=== PATIENT | female | born 1995 | race Caucasian/White ===

== ENCOUNTER 2016-12-31 10:32 | Day surgery (SDC) | payer BC ==
[~2016-12-31] VITALS: Ht 170.2 cm; Wt 113.7 kg
[2016-12-31] MEDS ORDERED: PROPOFOL 80 ML ONE (10:57)
[2016-12-31] MEDS ORDERED: LIDOCAINE 2% (SDV) 5 ML INJ ONE (10:57)
[2016-12-31 11:03] VITALS: Ht 170.2 cm; Wt 113.7 kg
[2016-12-31] MEDS ORDERED: BIRTH CONTROL (11:06)
[2016-12-31 11:19] VITALS: BP 106/57; PULSE 83; RESP 18
--- NOTE | 2016-12-31 11:53 | OPPN ---
Date/Time of Note Date/Time of Note DATE: 12/31/16 TIME: 11:52 Operative Report Preoperative Diagnosis Abdominal pain Chronic diarrhea Postoperative Diagnosis Gastritis Internal hemorrhoids Operation/Procedure Performed Esophagogastroduodenoscopy and biopsy Colonoscopy and biopsy Surgeon see signature line transportation assistant None Anesthesia: MAC Estimated blood loss: none Transfusion Required none Specimen Gastric mucosal biopsy Small bowel biopsy Random colon biopsy Grafts/Implants none Complications none JESSICA OLIVARES MD Dec 31, 2016 11:53
--- NOTE | 2016-12-31 11:53 | OPPN ---
Date/Time of Note Date/Time of Note DATE: 12/31/16 TIME: 11:52 Operative Report Preoperative Diagnosis Abdominal pain Chronic diarrhea Postoperative Diagnosis Gastritis Internal hemorrhoids Operation/Procedure Performed Esophagogastroduodenoscopy and biopsy Colonoscopy and biopsy Surgeon see signature line captain assistant None Anesthesia: MAC Estimated blood loss: none Transfusion Required none Specimen Gastric mucosal biopsy Small bowel biopsy Random colon biopsy Grafts/Implants none Complications none JESSICA OLIVARES MD Dec 31, 2016 11:53
--- NOTE | 2016-12-31 11:53 | OPPN ---
Date/Time of Note Date/Time of Note DATE: 12/31/16 TIME: 11:52 Operative Report Preoperative Diagnosis Abdominal pain Chronic diarrhea Postoperative Diagnosis Gastritis Internal hemorrhoids Operation/Procedure Performed Esophagogastroduodenoscopy and biopsy Colonoscopy and biopsy Surgeon see signature line financial legal assistant None Anesthesia: MAC Estimated blood loss: none Transfusion Required none Specimen Gastric mucosal biopsy Small bowel biopsy Random colon biopsy Grafts/Implants none Complications none JESSICA OLIVARES MD Dec 31, 2016 11:53
--- NOTE | 2017-01-01 05:29 | GILP ---
DATE OF PROCEDURE: NAME OF PROCEDURES: 1. Esophagogastroduodenoscopy and biopsy. 2. Colonoscopy and biopsy. SURGEON: Bernadette Fulton MD PREOPERATIVE DIAGNOSES: 1. Abdominal pain. 2. Chronic diarrhea. POSTOPERATIVE DIAGNOSES 1. Gastritis with erosions. 2. Gastric mucosal biopsies were taken for Helicobacter pylori test. 3. Small bowel biopsies were taken to rule out celiac disease. 4. Colonoscopy all the way to the cecum and into the terminal ileum. 5. Normal terminal ileum. 6. Normal colonic mucosa. 7. Random biopsies were taken to rule out microscopic colitis. 8. Internal hemorrhoids. INDICATION FOR THE PROCEDURE: Ms. Madeline Kingsley is a 21-year-old female patient who had upper abdo yony pain, not responding to therapy. She also had chronic diarrhea. The patient was scheduled fo r endoscopy and colonoscopy for further evaluation. The procedures and possible complications were well explained to the patient. The patient understoo d and consented to the procedure. DESCRIPTION OF PROCEDURE: Under the influence of anesthesia, the gastroscope was carefully introduc ed into the esophagus and under direct vision, it was advanced to the stomach and through the pyloru s into the duodenal bulb and descending duodenum. FINDINGS: ESOPHAGUS: The mucosa was normal. STOMACH: The patient had gastritis with erosions. Gastric mucosal biopsies were taken for H. pylor i test. DUODENUM: Normal. Small bowel biopsies were taken to rule out celiac disease. The colonoscope was carefully introduced in the rectum and under direct vision, it was advanced all the way to the cecum and through the ileocecal valve into the terminal ileum. FINDINGS: The terminal ileum was normal. The colonic mucosa was normal. Random biopsies were take n to rule out microscopic colitis. The patient was noted to have internal hemorrhoids. She tolerated the procedures very well and there was no complication from the procedures. At the en d of the procedures, she was awake with stable vital signs and she was discharged home to the care o f her family. IMPRESSION: Please see postoperative diagnosis. PLAN: 1. Nexium 24 hours p.o. q.a.m. 2. Bentyl 10 mg p.o. t.i.d. p.r.n. for abdominal pain and diarrhea. 3. Await histopathology reports. Dictated By: BERNADETTE LUCSA/MADINA Conf#: [id number] [facility]#: [id number]
== END 2016-12-31 13:28 | disposition home or self-care (01) ==
LOC: GIL 10:32
PROVIDERS: ATTEND Internal Medicine Gastroenterology
DX: K29.60 Other gastritis without bleeding (principal); K64.8 Other hemorrhoids; E66.01 Morbid (severe) obesity due to excess calories; Z68.39 Body mass index [BMI] 39.0-39.9, adult
CPT/HCPCS: 43239; 45380; 84703; 87081; 88305; Z7610